=== PATIENT | female | born 1975 | race Caucasian/White ===

== ENCOUNTER → 2022-08-31 11:35 | Outpatient (CLI) | payer BC, SELFPAY ==
[2022-08-31 20:18] LABS: Coronavirus 19, PCR Not Detected (NotDetected); Influenza A, PCR Not Detected (NotDetected); Influenza B, PCR Not Detected (NotDetected)
== END ==
PROVIDERS: PCP Nurse Practitioner; Visit Provider Nurse Practitioner
DX: Z20.822 Contact with and (suspected) exposure to COVID-19 (principal); J06.9 Acute upper respiratory infection, unspecified
CPT/HCPCS: C9803; U0003; U0005

== ENCOUNTER → 2023-06-22 15:40 | Outpatient (CLI) | payer BC, SELFPAY ==
--- NOTE | 2023-06-22 15:41 | MR_ITS ---
PROCEDURE INFORMATION: Exam: MR Head Without and With Contrast Exam date and time: 06/22/2023 3:53 PM Age: 47 years old Clinical indication: Pain; Headache; Migraine; Aura effect not specified; Additional info: Migraine, transient vision loss in right eye TECHNIQUE: Imaging protocol: Magnetic resonance imaging of the head without and with contrast. Contrast material: ISOVUE; Contrast volume: 18 ml; Contrast route: IV; COMPARISON: No relevant prior studies available. FINDINGS: Brain: No restricted diffusion within the brain to suggest an acute infarct. There are a few punctate foci of FLAIR hyperintensity within the right frontal white matter, with a small focus of FLAIR hyperintensity in the region of the left external capsule/subinsular region. There is no mass effect or restricted diffusion associated with these foci. This white matter disease is nonspecific as to etiology. Possible etiologies include chronic small vessel ischemic disease, demyelination, post-traumatic change, and migraine headaches, as well as additional infectious, inflammatory and autoimmune etiologies. No cerebral edema. No enhancing intracranial mass is identified. 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 Mild asymmetry of the lateral ventricles, without significant ventriculomegaly. Bones/joints: Nonspecific heterogeneous signal intensity of the skull on T1. Paranasal sinuses: Minimal mucosal thickening of a few ethmoid air cells. No air-fluid levels within the paranasal sinuses. Mastoid air cells: No mastoid effusion. Orbital cavities: Motion artifact limits evaluation of the orbits. Vasculature: Increased FLAIR signal intensity is noted within the left transverse venous sinus, without occlusive thrombosis on postcontrast images. Soft tissues: Unremarkable, as visualized. IMPRESSION: 1. No acute infarct. 2. Minimal white matter disease. This is nonspecific as to etiology, as detailed above. 3. Additional findings described above.
== END ==
LOC: RAD 15:41
PROVIDERS: PCP Nurse Practitioner; Visit Provider Nurse Practitioner
DX: G43.009 Migraine without aura, not intractable, without status migrainosus (principal); H53.9 Unspecified visual disturbance
CPT/HCPCS: 70553; A9576

== ENCOUNTER → 2023-10-13 08:39 | Outpatient (CLI) | payer BC, SELFPAY ==
[2023-10-12 19:03] LABS: Alanine Aminotransferase 22 U/L (12-78); Albumin Level 4.4 g/dl (3.5-5.0); Albumin/Globulin Ratio 1.5 (1.1-1.8); Alkaline Phosphatase 89 U/L (38-126); Anion Gap 11.9 mEq/L (5-15); Aspartate Amino Transferase 24 U/L (14-36); Bilirubin,Total 0.5 mg/dl (0.2-1.3); Blood Urea Nitrogen 15 mg/dl (7-17); Calcium 8.8 mg/dl (8.4-10.2); Carbon Dioxide 26 mmol/L (22.0-30.0); Chloride 104 mmol/L (98-107); Estimated Glomerular Filt Rate 90 ml/min (>60); GFR (African American) 109 ML/MIN (>60); Glucose 93 mg/dl (74-100); Potassium 3.9 mmoL/L (3.5-5.1); Sodium 138 mmol/L (136-145); Total Protein,Serum 7.4 g/dl (6.3-8.2)
[2023-10-12 19:05] LABS: Basophils % 0.3 % (0.1-2.0); Eosinophils % 0.5 % (0.1-12.0); Hematocrit 45.1 % (37.0-47.0); Hemoglobin 14.9 g/dL (12.2-16.2); Lymphocytes # 2.5 K/mm3 (0.7-4.5); Lymphocytes % 28.2 % (10-50); Mean Corpuscular Hemoglobin 29.6 pg (27.0-31.2); Mean Corpuscular Volume 89.6 fl (81-99); Mean Platelet Volume 9.9 fl (7.4-10.4); Monocytes # 0.4 K/mm3 (0.1-1.0); Monocytes % 4.1 % (1.7-9.3); Neutrophils # 5.8 K/mm3 (1.8-7.8); Neutrophils % 66.9 % (37.0-80.0); Platelet Count 283 K/mm3 (142-424); Red Blood Count 5.03 M/mm3 (4.20-5.40); Red Cell Distribution Width 13.2 % (11.5-17.5); White Blood Count 8.7 K/mm3 (4.8-10.8)
[2023-10-14 12:10] LABS: Lyme Ab CIA Negative (Negative)
[2023-10-16 21:43] LABS: Lyme Interpretation Negative
== END ==
PROVIDERS: PCP Nurse Practitioner; Visit Provider Nurse Practitioner
DX: R07.89 Other chest pain (principal)
CPT/HCPCS: 80053; 85025; 86618

== ENCOUNTER 2024-02-19 23:00 | Outpatient (CLI) | payer BC, SELFPAY ==
[2024-02-19 18:52] LABS: Alanine Aminotransferase 23 U/L (12-78); Albumin/Globulin Ratio 1.4 (1.1-1.8); Anion Gap 11.2 mEq/L (5-15); Aspartate Amino Transferase 30 U/L (14-36); Bilirubin,Total 0.6 mg/dl (0.2-1.3); Blood Urea Nitrogen 14 mg/dl (7-17); Carbon Dioxide 25 mmol/L (22.0-30.0); Chloride 108 mmol/L (98-107); Estimated Glomerular Filt Rate 89 ml/min (>60); GFR (African American) 108 ML/MIN (>60); Globulin 2.8 g/dL (1.3-3.2); Glucose 109 mg/dl (74-100); Potassium 4.2 mmoL/L (3.5-5.1); Sodium 140 mmol/L (136-145); Total Protein,Serum 6.8 g/dl (6.3-8.2); Triglycerides 85 mg/dl (30-150)
[2024-02-19 18:53] LABS: Alkaline Phosphatase 91 U/L (38-126); Chol/HDL Ratio 4.6 (1-3.5); Cholesterol 208 mg/dl (140-200); HDL Cholesterol 45 mg/dl (40-60); VLDL Cholesterol 17 mg/dL (0-40)
[2024-02-19 19:02] LABS: 25-OH Vitamin D, Total 37.8 ng/mL (30-100)
[2024-02-19 19:03] LABS: Free T4 (Free Thyroxine) 1.61 ng/dl (0.78-2.19)
[2024-02-19 19:30] LABS: Thyroid Stimulating Hormone 1.12 uIU/mL (0.465-4.68)
[2024-02-19 19:49] LABS: Vitamin B12 219 pg/mL (239-931)
[2024-02-19 20:19] LABS: Hemoglobin A1C 5.5 % (4.0-6.0)
== END 2024-02-19 23:59 | disposition home or self-care (01) ==
LOC: LAB.DROPOF 23:00
PROVIDERS: PCP Nurse Practitioner; Visit Provider Nurse Practitioner
DX: R73.01 Impaired fasting glucose (principal); E66.9 Obesity, unspecified; E53.8 Deficiency of other specified B group vitamins; Z68.30 Body mass index [BMI] 30.0-30.9, adult; Z79.899 Other long term (current) drug therapy
CPT/HCPCS: 80053; 80061; 82306; 82607; 83036; 84439; 84443

== ENCOUNTER 2024-11-12 13:18 | Outpatient (CLI) | payer BC, SELFPAY ==
[2024-11-12 19:54] LABS: Alanine Aminotransferase 22 U/L (12-78); Albumin Level 3.9 g/dl (3.5-5.0); Albumin/Globulin Ratio 1.7 (1.1-1.8); Alkaline Phosphatase 96 U/L (38-126); Anion Gap 13.9 mEq/L (5-15); Aspartate Amino Transferase 24 U/L (14-36); Bilirubin,Total 0.4 mg/dl (0.2-1.3); Blood Urea Nitrogen 13 mg/dl (7-17); Carbon Dioxide 23 mmol/L (22.0-30.0); Chloride 106 mmol/L (98-107); Estimated Glomerular Filt Rate 67 ml/min (>60); GFR (African American) 81 ML/MIN (>60); Globulin 2.3 g/dL (1.3-3.2); Glucose 93 mg/dl (74-100); Potassium 3.9 mmoL/L (3.5-5.1); Sodium 139 mmol/L (136-145); Total Protein,Serum 6.2 g/dl (6.3-8.2)
[2024-11-12 20:18] LABS: Hemoglobin A1C 5.2 % (4.0-6.0)
== END 2024-11-12 23:59 | disposition home or self-care (01) ==
LOC: LAB.DROPOF 11-14 13:19
PROVIDERS: PCP Nurse Practitioner; Visit Provider Nurse Practitioner
DX: N30.01 Acute cystitis with hematuria (principal); E66.9 Obesity, unspecified; Z68.30 Body mass index [BMI] 30.0-30.9, adult; J06.9 Acute upper respiratory infection, unspecified
CPT/HCPCS: 80053; 83036; 87086

== ENCOUNTER 2024-12-11 09:14 | Outpatient (CLI) | payer BC, SELFPAY ==
[2024-12-11 17:48] LABS: Coronavirus 19, PCR Not Detected (NotDetected); Human Rhinovirus Not Detected (NotDetected); Influenza A, PCR Not Detected (NotDetected); Influenza B, PCR Not Detected (NotDetected); Respiratory Syncytial Virus Not Detected (NotDetected)
== END 2024-12-11 23:59 | disposition home or self-care (01) ==
LOC: LAB.DROPOF 12-12 09:14
PROVIDERS: PCP Nurse Practitioner; Visit Provider Nurse Practitioner
DX: J06.9 Acute upper respiratory infection, unspecified (principal); J02.9 Acute pharyngitis, unspecified
CPT/HCPCS: 87631